=== PATIENT | male | born 1970 | race Caucasian/White ===

== ENCOUNTER 2017-02-10 10:19 | Emergency (ER) | payer BC ==
[2017-02-10] MEDS ORDERED: Aspirin Low Dose CHEW TAB* 81 MG PO ONE (10:29)
[2017-02-10] MEDS ORDERED: NS 0.9% 500 ML* 500 ML IV ONE (10:46)
[2017-02-10] MEDS ORDERED: Metoprolol Tartrate IV* 1 MG/ML 5 ML VIAL IV ONE (10:46)
--- NOTE | 2017-02-10 11:02 | RAD ---
Indication: Chest pressure. Single frontal view of the chest performed at 1036 hours was reviewed. Comparison is made with previous exam dated February 04, 2014. No mediastinal shift is noted. Pacemaker leads are in place. The visualized lung dutta are clear. IMPRESSION: NO ACTIVE CARDIOPULMONARY DISEASE IS NOTED. PACEMAKER LEADS IN PLACE. NO CHANGES NOTED SINCE PRIOR EXAM.
[2017-02-10 11:04] LABS: ABS Basophils 0.1 10^3/ul (0-0.2); ABS Eosinophils 0.2 10^3/ul (0-0.6); ABS Lymphocytes 1.1 10^3/ul (1.0-4.8); ABS Monocytes 0.5 10^3/ul (0-0.8); ABS Neutrophils 4.4 10^3/ul (1.5-7.7); ABS Nucleated RBC 0.03 10^3/ul; Eosinophil % 2.9 % (0-6); Hematocrit 46 % (42-52); Hemoglobin 15.8 g/dl (14.0-18.0); Lymphocyte % 18.1 % (25-47); Mean Corpuscular HGB Conc 35 g/dl (31-36); Mean Corpuscular Hemoglobin 30 pg (27-31); Mean Corpuscular Volume 88 fL (80-94); Mean Platelet Volume 9 um3 (7.4-10.4); Nucleated Red Blood Cells % 0.5; Platelet Count 228 10^3/ul (150-450); Red Blood Count 5.23 10^6/ul (4.0-5.4); Red Cell Distribution Width 13 % (10.5-15); White Blood Count 6.3 10^3/ul (3.5-10.8)
[2017-02-10 11:16] LABS: INR 0.91 (0.77-1.02)
[2017-02-10 11:26] LABS: EGFR Non-African American 80.7 (>60)
[2017-02-10 12:35] VITALS: BP 117/80
--- NOTE | 2017-02-10 13:03 | ED ---
Lu Loo Gabriel, scribed for Gerhard Navarro MD on 02/10/17 at 1041 . HPI Chest Pain - HPI Summary HPI Summary: This patient is a 46 year old M presenting to [facility] with a chief complaint of pressure in his chest since 0900 this morning. He also had a similar episode on 02/06/17. The patient rates the pain 8/10 in severity. Patient reports dizziness. Patient denies SOB. Patient has had a pacer for ten years due to cardiomyopathy and the battery is getting low and will be replaced soon. He reports that for the past three months when it is active he can feel it and it triggers and uncontrollable coughing fit. The low battery is making him anxious and he is worried that it is going to stop functioning. - History of Current Complaint Chief Complaint: EDChestPainROMI Time Seen by Provider: 02/10/17 10:29 Hx Obtained From: Patient Onset/Duration: Started Hours Ago - 0900, Started Days Ago - since 02/06, Still Present Time of Onset: 09:00 Timing: Constant Initial Severity: Moderate Current Severity: Mild Pain Intensity: 8 Pain Scale Used: 0-10 Numeric Chest Pain Radiates: No Character: Pressure/Squeezing Aggravating Factor(s): Nothing Alleviating Factor(s): Spontaneous Resolution Associated Signs and Symptoms: Positive: Negative - SOB, Other: - dizziness - Allergy/Home Medications Allergies/Adverse Reactions: Allergies Allergy/AdvReac Type Severity Reaction Status Date / Time Nitroglycerin AdvReac See Comment Verified 09/30/15 19:52 PMH/Surg Hx/FS Hx/Imm Hx Endocrine/Hematology History: Denies: Hx Diabetes Cardiovascular History: Reports: Hx Pacemaker/ICD Denies: Hx Hypercholesterolemia, Hx Hypertension Sensory History: Denies: Hx Legally Blind Opthamlomology History: Denies: Hx Cataracts EENT History: Denies: Hx Deafness - Surgical History Surgery Procedure, Year, and Place: PACEMAKER, IMPLANTED DEFIBRILLATOR Infectious Disease History: No Infectious Disease History: Denies: Traveled Outside the [place] in Last 30 Days - Family History Known Family History: Positive: Diabetes, Other - cancer - Social History Alcohol Use: Occasionally Substance Use Type: Reports: None Smoking Status (MU): Never Smoked Tobacco Review of Systems Positive: Chest Pain Positive: Cough. Negative: Shortness Of Breath Neurological: Other - dizziness All Other Systems Reviewed And Are Negative: Yes Physical Exam - Summary Physical Exam Summary: Appearance: Well appearing, no pain distress Skin: warm, dry, reflects adequate perfusion Head/face: normal Eyes: EOMI, MARY ENT: normal, mucus membranes are moist Neck: supple, non-tender Respiratory: CTA, breath sounds present Cardiovascular: RRR, pulses symmetrical. There is a pacer in the left chest with no tenderness Abdomen: non-tender, soft Bowel: present Musculoskeletal: normal, strength/ROM intact, no edema Neuro: normal, sensory motor intact, A&Ox3. Patient is anxious to the battery life of his device Triage Information Reviewed: Yes Vital Signs On Initial Exam: Initial Vitals Temp Pulse Resp BP Pulse Ox 97.0 F 103 18 136/93 99 02/10/17 10:20 02/10/17 10:20 02/10/17 10:20 02/10/17 10:20 02/10/17 10:20 Vital Signs Reviewed: Yes Diagnostics - Vital Signs Vital Signs Temp Pulse Resp BP Pulse Ox 02/10/17 10:20 97.0 F 103 18 136/93 99 - Laboratory Lab Results: Lab Results 02/10/17 02/10/17 02/10/17 Range/Units 10:50 10:50 10:50 WBC 6.3 (3.5-10.8) 10^3/ul RBC 5.23 (4.0-5.4) 10^6/ul Hgb 15.8 (14.0-18.0) g/dl Hct 46 (42-52) % MCV 88 (80-94) fL MCH 30 (27-31) pg MCHC 35 (31-36) g/dl RDW 13 (10.5-15) % Plt Count 228 (150-450) 10^3/ul MPV 9 (7.4-10.4) um3 Neut % (Auto) 69.7 (38-83) % Lymph % (Auto) 18.1 L (25-47) % Price % (Auto) 8.5 (1-9) % Eos % (Auto) 2.9 (0-6) % Baso % (Auto) 0.8 (0-2) % Absolute Neuts (auto) 4.4 (1.5-7.7) 10^3/ul Absolute Lymphs (auto) 1.1 (1.0-4.8) 10^3/ul Absolute Monos (auto) 0.5 (0-0.8) 10^3/ul Absolute Eos (auto) 0.2 (0-0.6) 10^3/ul Absolute Basos (auto) 0.1 (0-0.2) 10^3/ul Absolute Nucleated RBC 0.03 10^3/ul Nucleated RBC % 0.5 INR (Anticoag Therapy) 0.91 (0.77-1.02) APTT 28.9 (26.0-36.3) seconds Sodium 137 (133-145) mmol/L Potassium 4.4 (3.5-5.0) mmol/L Chloride 103 (101-111) mmol/L Carbon Dioxide 29 (22-32) mmol/L Anion Gap 5 (2-11) mmol/L BUN 14 (6-24) mg/dL Creatinine 0.99 (0.67-1.17) mg/dL Est GFR ( Amer) 103.8 (>60) Est GFR (Non-Af Amer) 80.7 (>60) BUN/Creatinine Ratio 14.1 (8-20) Glucose 109 H (70-100) mg/dL Lactic Acid (0.5-2.0) mmol/L Calcium 9.6 (8.6-10.3) mg/dL Total Bilirubin 1.20 H (0.2-1.0) mg/dL AST 21 (13-39) U/L ALT 16 (7-52) U/L Alkaline Phosphatase 57 (34-104) U/L CK-MB (CK-2) 4.0 (0.6-6.3) ng/mL Troponin I 0.00 (<0.04) ng/mL Total Protein 7.7 (6.4-8.9) g/dL Albumin 4.4 (3.2-5.2) g/dL Globulin 3.3 (2-4) g/dL Albumin/Globulin Ratio 1.3 (1-3) 02/10/ Range/Units 10:50 WBC (3.5-10.8) 10^3/ul RBC (4.0-5.4) 10^6/ul Hgb (14.0-18.0) g/dl Hct (42-52) % MCV (80-94) fL MCH (27-31) pg MCHC (31-36) g/dl RDW (10.5-15) % Plt Count (150-450) 10^3/ul MPV (7.4-10.4) um3 Neut % (Auto) (38-83) % Lymph % (Auto) (25-47) % Price % (Auto) (1-9) % Eos % (Auto) (0-6) % Baso % (Auto) (0-2) % Absolute Neuts (auto) (1.5-7.7) 10^3/ul Absolute Lymphs (auto) (1.0-4.8) 10^3/ul Absolute Monos (auto) (0-0.8) 10^3/ul Absolute Eos (auto) (0-0.6) 10^3/ul Absolute Basos (auto) (0-0.2) 10^3/ul Absolute Nucleated RBC 10^3/ul Nucleated RBC % INR (Anticoag Therapy) (0.77-1.02) APTT (26.0-36.3) seconds Sodium (133-145) mmol/L Potassium (3.5-5.0) mmol/L Chloride (101-111) mmol/L Carbon Dioxide (22-32) mmol/L Anion Gap (2-11) mmol/L BUN (6-24) mg/dL Creatinine (0.67-1.17) mg/dL Est GFR ( Amer) (>60) Est GFR (Non-Af Amer) (>60) BUN/Creatinine Ratio (8-20) Glucose (70-100) mg/dL Lactic Acid 1.1 (0.5-2.0) mmol/L Calcium (8.6-10.3) mg/dL Total Bilirubin (0.2-1.0) mg/dL AST (13-39) U/L ALT (7-52) U/L Alkaline Phosphatase (34-104) U/L CK-MB (CK-2) (0.6-6.3) ng/mL Troponin I (<0.04) ng/mL Total Protein (6.4-8.9) g/dL Albumin (3.2-5.2) g/dL Globulin (2-4) g/dL Albumin/Globulin Ratio (1-3) Result Diagrams: 02/10/17 10:50 02/10/17 10:50 Lab Statement: Any lab studies that have been ordered have been reviewed, and results considered in the medical decision making process. - Radiology CXR Radiology Interpretation Completed By: Radiologist - NO ACTIVE CARDIOPULMONARY DISEASE IS NOTED. PACEMAKER LEADS IN PLACE. NO CHANGES NOTED SINCE PRIOR EXAM. ED physician has reviewed this radiology report. - EKG 1025 Cardiac Rate: NL EKG Rhythm: Sinus Rhythm - at [address] Segment: Normal EKG Interpretation: LAD Re-Evaluation - Re-Evaluation First Eval Re-Evaluation Time: 11:47 Change: Improved - Patient is feeling better and would like to be discharged. Chest Pain Course/Dx - Course Course Of Treatment: pt is quite anxious about nearing the end of battery life of his AICD/pacer. He feels that it makes him cough when it activates. No coughing here. Trop, ECG wnl. Trop not detected. Pt calmed here. D/C to f/u closely with [facility] in [place]. - Diagnoses Provider Diagnoses: Atypical chest pain, History of cardiomyopathy, Adjustment disorder Discharge - Discharge Plan Condition: Good Disposition: HOME Prescriptions: Famotidine TAB* [Pepcid 20 MG TAB*] 20 mg PO BID #20 tab Patient Education Materials: Chest Pain (ED) Forms: *Work Release Referrals: [facility] [Outside] Additional Instructions: Call Dr Crow in [place] regarding replacement of your device. If they cannot do it on your schedule call Shreyas Saleem or Anita. Return with continued symptoms, palpitations, worse or other concerns. The documentation as recorded by the Lu clark Gabriel accurately reflects the service I personally performed and the decisions made by me, Gerhard Navarro MD.
== END 2017-02-10 12:33 | disposition home or self-care (01) ==
LOC: ED 10:19
DX: R07.9 Chest pain, unspecified (principal); F43.20 Adjustment disorder, unspecified; R05 Cough; R42 Dizziness and giddiness; R07.89 Other chest pain; Z86.79 Personal history of other diseases of the circulatory system
CPT/HCPCS: 36415; 71010; 80053; 82553; 83605; 84484; 85025; 85610; 85730; 93005; 99283; A9270-GY; J3490

== ENCOUNTER → 2017-03-29 11:44 | Day surgery (SDC) | payer BC ==
[~2017-03-29 11:44] MED LIST: Diazepam TAB(*) 5 MG ONE; Diazepam TAB(*) 5 MG PO ONE; Lidocaine 1% INJ* 10 MG/ML 30 ML SDV ONE; Midazolam* 1 MG/ML 10 ML VIAL (10 MG) ONE; NS 0.9% 1000 ML* 1,000 ML IV SCH; ceFAZolin 2 GM PREMIX (*) 2 GM/50 ML BAG IVPB ONE; ceFAZolin VIAL 1 GM in NS *SYRINGE * * 10 ML ONE; fentaNYL* 50 MCG/ML 2 ML VIAL (100 MCG VIAL) ONE
[2017-03-29 16:04] VITALS: BP 130/91
--- NOTE | 2017-03-30 14:16 | OP ---
CC: Dr. Santiago OPERATIVE REPORT: DATE OF OPERATION: 03/29/17 DATE OF : 66 SURGEON: Jose Stroud MD ANESTHESIA: Local anesthesia with conscious sedation. PRE-OP DIAGNOSES: ICD at elective replacement indicator and cardiomyopathy. POST-OP DIAGNOSES: ICD at elective replacement indicator and cardiomyopathy. OPERATIVE PROCEDURE: Single-chamber ICD generator change. ESTIMATED BLOOD LOSS: Nil. COMPLICATIONS: None. INDICATIONS: The patient is a 46-year-old gentleman with a history of ischemic cardiomyopathy, histo ry of ICD implantation in 2006. He has been followed closely by Dr. Santiago. The patient's ICD re ached elective replacement indicator and generator change was recommended. DESCRIPTION OF PROCEDURE: The patient was brought to the procedure room in a fasting state. Informe d consent had been obtained prior to the procedure. All labs had been reviewed. The patient has a [employer] ICD generator and ICD lead. His ICD lead is not MRI compatible. The decision was m eileen to switch to a Med[employer] generator. The patient was placed supine on the procedure table. His l eft deltopectoral area was cleaned and draped in usual fashion. 1% lidocaine was used for local anes thesia. A 4.5-cm incision was made in the previous incision line and blunt dissection was carried do wn to the fiber sheath. The fiber sheath was opened and the ICD generator was removed from the pocke t. It was detached from the ventricular lead. The explanted device is a [employer], model T1 77, implant date 08/11/06, serial number [id number]. The pocket was flushed with an antibiotic infused n ormal saline. A new generator was attached to the ventricular lead. The generator is a Medtronic mo del [id number], serial number [id number]. The device was placed into the pocket. The surgical incision was closed in 3 layers. The patient was returned to the holding area in stable condition. [id number]/[facility] #: [id number]
== END | disposition home or self-care (01) ==
LOC: CHICATH 11:44
PROVIDERS: ATTEND Specialist
DX: Z45.02 Encounter for adjustment and management of automatic implantable cardiac defibrillator (principal); Z95.810 Presence of automatic (implantable) cardiac defibrillator; I42.8 Other cardiomyopathies; I10 Essential (primary) hypertension; R42 Dizziness and giddiness; R00.0 Tachycardia, unspecified; R07.9 Chest pain, unspecified; R00.2 Palpitations; R06.00 Dyspnea, unspecified
CPT/HCPCS: 33262; 88300; 99156; 99157; A9270-GY; C1722; J0690; J2250; J3010

== ENCOUNTER 2017-04-08 09:33 | Emergency (ER) | payer BC ==
--- NOTE | 2017-04-08 10:59 | RAD ---
INDICATION: Chest pain. COMPARISON: Comparison is made with a prior study from February 10, 2017. TECHNIQUE: Dual-energy PA and lateral views of the chest were obtained. FINDINGS: The heart is within normal limits in size. There is a transvenous pacemaker present. The lungs are clear. No pleural effusion is present. IMPRESSION: NO EVIDENCE FOR ACTIVE CARDIOPULMONARY DISEASE.
--- NOTE | 2017-04-08 11:44 | ED ---
Anju Loo Julia, scribed for Abran Li MD on 04/08/17 at 1022 . Complex/Multi-Sys Presentation - HPI Summary HPI Summary: This patient is a 46 year old M presenting to [facility] with a chief complaint of pain over recent pacemaker replacement over the right anterior chest. Patient reports he moved the wrong way while working , by swinging sledge hammer this morning. Patient denies edema. The patient rates the pain 9/10 in severity. Patient has history of cardiomyopathy for the past fifteen years and is a longstanding pacemaker patient. He states these symptoms are similar to post procedural pain. - History Of Current Complaint Chief Complaint: EDGeneral Time Seen by Provider: 04/08/17 10:16 Hx Obtained From: Patient Onset/Duration: Lasting Hours Timing: Constant Location: Pain At: - R anterior chest Aggravating Factor(s): recent movement Related History: Other - long standing pacemaker patient - Allergies/Home Medications Allergies/Adverse Reactions: Allergies Allergy/AdvReac Type Severity Reaction Status Date / Time nitroglycerin Allergy Mild See Comment Verified 04/08/17 11:19 enalaprilat [From Vasotec] Allergy Coughing Verified 03/29/17 12:47 PMH/Surg Hx/FS Hx/Imm Hx Endocrine/Hematology History: Denies: Hx Diabetes Cardiovascular History: Reports: Hx Pacemaker/ICD Denies: Hx Hypercholesterolemia, Hx Hypertension Sensory History: Denies: Hx Cataracts, Hx Legally Blind, Hx Deafness Opthamlomology History: Denies: Hx Cataracts, Hx Legally Blind - Surgical History Surgery Procedure, Year, and Place: PACEMAKER, IMPLANTED DEFIBRILLATOR Infectious Disease History: No Infectious Disease History: Denies: Traveled Outside the [place] in Last 30 Days - Family History Known Family History: Positive: Diabetes, Other - cancer - Social History Alcohol Use: Daily Alcohol Amount: 1 beer a day Substance Use Type: Reports: None Smoking Status (MU): Never Smoked Tobacco Review of Systems Positive: Other - r anterior cp at pacemaker placement Negative: Edema All Other Systems Reviewed And Are Negative: Yes Physical Exam Triage Information Reviewed: Yes Vital Signs On Initial Exam: Initial Vitals Temp Pulse Resp BP Pulse Ox 99 F 95 17 141/90 95 04/08/17 09:37 04/08/17 09:37 04/08/17 09:37 04/08/17 09:37 04/08/17 09:37 Vital Signs Reviewed: Yes Appearance: Positive: Well-Appearing, No Pain Distress Skin: Positive: Warm, Skin Color Reflects Adequate Perfusion Head/Face: Positive: Normal Head/Face Inspection Eyes: Positive: EOMI ENT: Positive: Normal ENT inspection Neck: Positive: Nontender Respiratory/Lung Sounds: Positive: Clear to Auscultation, Breath Sounds Present , Other - LEFT UPPER CHEST WALL WITH SCAR PRESENT AND HEALING WELL. NO DEHISCENCE, AND HEMATOMA, NO REDNESS, NO FLUCTUANCE. PACEMAKER PALPATED AND NON TENDER. Cardiovascular: Positive: RRR. Negative: Murmur Abdomen Description: Positive: Nontender Musculoskeletal: Positive: Strength/ROM Intact Neurological: Positive: Sensory/Motor Intact, Alert, Oriented to Person Place, Time, CN Intact II-III Psychiatric: Positive: Normal - Arthur Coma Scale Best Eye Response: 4 - Spontaneous Best Motor Response: 6 - Obeys Commands Best Verbal Response: 5 - Oriented Coma Scale Total: 15 Diagnostics - Vital Signs Vital Signs Temp Pulse Resp BP Pulse Ox 04/08/17 09:52 96 21 95 04/08/17 09:51 126/91 04/08/17 09:37 99 F 95 17 141/90 95 - Laboratory Lab Statement: Any lab studies that have been ordered have been reviewed, and results considered in the medical decision making process. - Radiology CXR Radiology Interpretation Completed By: Radiologist - NO EVIDENCE FOR ACTIVE CARDIOPULMONARY DISEASE. ED Physician has reviewed this report. Complex Multi-Symp Course/Dx Course Of Treatment: Patient presents with pain over recent pacemaker insertion , after swinging a sledge hammer. There is no edema or oozing. A CXR reveals no acute concern. Dr. Spann saw this patient in the ED. Dr Spann wrote note for patient to be out of work until Wednesday, and Cardiology to direct further work related instructions. - Diagnoses Provider Diagnoses: Soft tissue injury of chest wall - Physician Notifications Discussed Care Of Patient With: Meryl Spann - cardiology Time Discussed With Above Provider: 11:13 Instructed by Provider To: MD Will See In ED Discharge - Discharge Plan Condition: Good Disposition: HOME Patient Education Materials: Chest Wall Pain (ED) Referrals: Shelbie Santiago MD [Primary Care Provider] - Additional Instructions: Dr Spann has taken you out of work until WednesdayApr 13. Contact there office for any further concerns. The documentation as recorded by the Ajnu clark Julia accurately reflects the service I personally performed and the decisions made by me, Abran Li MD.
[2017-04-08 11:49] VITALS: BP 122/86
== END 2017-04-08 11:56 | disposition home or self-care (01) ==
LOC: ED 09:33
DX: S29.8XXA Other specified injuries of thorax, initial encounter (principal); X50.0XXA Overexertion from strenuous movement or load, initial encounter; Y93.89 Activity, other specified; Y92.9 Unspecified place or not applicable; I42.9 Cardiomyopathy, unspecified; Z95.0 Presence of cardiac pacemaker; Z88.8 Allergy status to other drugs, medicaments and biological substances
CPT/HCPCS: 71046; 99282

== ENCOUNTER 2017-04-30 13:30 | Emergency (ER) | payer BC ==
[2017-04-30] MEDS ORDERED: NS 0.9% 1000 ML* 1,000 ML IV ONE (16:39)
--- NOTE | 2017-04-30 17:03 | RAD ---
Indication: Chest congestion, cough. Symptoms for 4 days. Cardiac disease. Comparison: April 08, 2017 TECHNIQUE: Dual energy PA and routine lateral views of the chest were obtained. REPORT: No focal pulmonary lesion, compelling alveolar consolidation, pleural effusion, pneumothorax. Lead of LEFT chest wall pacemaker device extends to the RIGHT ventricle. Negative for cardiomegaly. Unremarkable central pulmonary vasculature and mediastinal contours. Unremarkable soft tissue contours and osseous structures for age. IMPRESSION: No evidence for acute intrathoracic disease.
[2017-04-30 17:17] LABS: ABS Basophils 0.1 10^3/ul (0-0.2); ABS Eosinophils 0.2 10^3/ul (0-0.6); ABS Lymphocytes 1.5 10^3/ul (1.0-4.8); ABS Monocytes 0.6 10^3/ul (0-0.8); ABS Neutrophils 4.1 10^3/ul (1.5-7.7); ABS Nucleated RBC 0 10^3/ul; Eosinophil % 2.4 % (0-6); Hematocrit 46 % (42-52); Hemoglobin 15.9 g/dl (14.0-18.0); Lymphocyte % 23.7 % (25-47); Mean Corpuscular HGB Conc 35 g/dl (31-36); Mean Corpuscular Hemoglobin 30 pg (27-31); Mean Corpuscular Volume 87 fL (80-94); Mean Platelet Volume 9 um3 (7.4-10.4); Nucleated Red Blood Cells % 0.1; Platelet Count 227 10^3/ul (150-450); Red Blood Count 5.27 10^6/ul (4.0-5.4); Red Cell Distribution Width 13 % (10.5-15); White Blood Count 6.4 10^3/ul (3.5-10.8)
[2017-04-30 17:41] LABS: EGFR Non-African American 96.2 (>60)
--- NOTE | 2017-04-30 18:54 | ED ---
Saeed Loo Nilda, scribed for Abran Winkler MD on 04/30/17 at 1643 . Respiratory - HPI Summary HPI Summary: This patient is a 46 year old M presenting to [facility] with a chief complaint of constant URI-like symptoms for the past few days. The patient rates the pain 0/ 10 in severity. Symptoms aggravated and alleviated by nothing. Patient reports chest congestion, rhinorrhea, productive cough (though unable to produce sputum) , and abd pain secondary to coughing. Patient denies sore throat, body aches, and CP. Patient states he had recent defibrillator replacement surgery for cardiomyopathy. Patient contacted PCP who recommended patient get evaluated at ED for possible pneumonia. - History of Current Complaint Chief Complaint: EDShortnessOfBreath Stated Complaint: CHEST CONGESTION,COUGH Time Seen by Provider: 04/30/17 16:24 Hx Obtained From: Patient Onset/Duration: Sudden Onset, Still Present Timing: Constant Pain Intensity: 0 Character: Cough (Productive) Sputum Amount: None Aggravating Factor(s): Nothing Alleviating Factor(s): Nothing Associated Signs and Symptoms: Nasal Congestion - Allergy/Home Medications Allergies/Adverse Reactions: Allergies Allergy/AdvReac Type Severity Reaction Status Date / Time nitroglycerin Allergy Mild See Comment Verified 04/30/17 13:45 enalaprilat [From Vasotec] Allergy Coughing Verified 04/30/17 13:45 Home Medications: Home Medications Losartan TAB* [Cozaar TAB*] 25 mg PO DAILY 04/30/17 [History Confirmed 04/30/17] PMH/Surg Hx/FS Hx/Imm Hx Endocrine/Hematology History: Denies: Hx Diabetes Cardiovascular History: Reports: Hx Pacemaker/ICD Denies: Hx Hypercholesterolemia, Hx Hypertension Sensory History: Denies: Hx Cataracts, Hx Legally Blind, Hx Deafness Opthamlomology History: Denies: Hx Cataracts, Hx Legally Blind - Surgical History Surgery Procedure, Year, and Place: PACEMAKER, IMPLANTED DEFIBRILLATOR Infectious Disease History: No Infectious Disease History: Denies: Traveled Outside the [place] in Last 30 Days - Family History Known Family History: Positive: Diabetes, Other - cancer - Social History Alcohol Use: Daily Alcohol Amount: 1 beer a day Substance Use Type: Reports: None Smoking Status (MU): Never Smoked Tobacco Review of Systems Positive: Nasal Discharge. Negative: Sore Throat Negative: Chest Pain Positive: Cough Positive: Abdominal Pain - secondary to coughing Negative: Myalgia All Other Systems Reviewed And Are Negative: Yes Physical Exam - Summary Physical Exam Summary: VITAL SIGNS: Reviewed. GENERAL: Patient is a well-developed and nourished male who is lying comfortable in the stretcher. Patient is not in any acute respiratory distress. HEAD AND FACE: No signs of trauma. No ecchymosis, hematomas or skull depressions. No sinus tenderness. EYES: PERRLA, EOMI x 2, No injected conjunctiva, no nystagmus. EARS: Hearing grossly intact. Ear canals and tympanic membranes are within normal limits. MOUTH: Oropharynx within normal limits. NECK: Supple, trachea is midline, no adenopathy, no JVD, no carotid bruit, no c- spine tenderness, neck with full ROM. CHEST: Symmetric, no tenderness at palpation. Incision on left side of chest, dry w/o signs of infection. LUNGS: Course breath sounds bilat. No wheezing or crackles. CVS: Regular rate and rhythm, S1 and S2 present, no murmurs or gallops appreciated. ABDOMEN: Soft, non-tender. No signs of distention. No rebound no guarding, and no masses palpated. Bowel sounds are normal. EXTREMITIES: FROM in all major joints, no edema, no cyanosis or clubbing. NEURO: Alert and oriented x 3. No acute neurological deficits. Speech is normal and follows commands. SKIN: Dry and warm Triage Information Reviewed: Yes Vital Signs On Initial Exam: Initial Vitals Temp Pulse Resp BP Pulse Ox 97.9 F 81 18 110/93 96 04/30/17 13:45 04/30/17 13:45 04/30/17 13:45 04/30/17 13:45 04/30/17 13:45 Vital Signs Reviewed: Yes Diagnostics - Vital Signs Vital Signs Temp Pulse Resp BP Pulse Ox 04/30/17 13:45 97.9 F 81 18 110/93 96 - Laboratory Lab Results: Lab Results 04/30/17 04/30/17 04/30/17 Range/Units 17:01 17:01 17:01 WBC 6.4 (3.5-10.8) 10^3/ul RBC 5.27 (4.0-5.4) 10^6/ul Hgb 15.9 (14.0-18.0) g/dl Hct 46 (42-52) % MCV 87 (80-94) fL MCH 30 (27-31) pg MCHC 35 (31-36) g/dl RDW 13 (10.5-15) % Plt Count 227 (150-450) 10^3/ul MPV 9 (7.4-10.4) um3 Neut % (Auto) 63.1 (38-83) % Lymph % (Auto) 23.7 L (25-47) % [place] % (Auto) 10.0 H (0-7) % Eos % (Auto) 2.4 (0-6) % Baso % (Auto) 0.8 (0-2) % Absolute Neuts (auto) 4.1 (1.5-7.7) 10^3/ul Absolute Lymphs (auto) 1.5 (1.0-4.8) 10^3/ul Absolute Monos (auto) 0.6 (0-0.8) 10^3/ul Absolute Eos (auto) 0.2 (0-0.6) 10^3/ul Absolute Basos (auto) 0.1 (0-0.2) 10^3/ul Absolute Nucleated RBC 0 10^3/ul Nucleated RBC % 0.1 D-Dimer, Quantitative (Less Than 230) ng/mL Sodium 136 (133-145) mmol/L Potassium 3.7 (3.5-5.0) mmol/L Chloride 101 (101-111) mmol/L Carbon Dioxide 25 (22-32) mmol/L Anion Gap 10 (2-11) mmol/L BUN 15 (6-24) mg/dL Creatinine 0.85 (0.67-1.17) mg/dL Est GFR ( Amer) 123.7 (>60) Est GFR (Non-Af Amer) 96.2 (>60) BUN/Creatinine Ratio 17.6 (8-20) Glucose 89 (70-100) mg/dL Lactic Acid 0.8 (0.5-2.0) mmol/L Calcium 9.6 (8.6-10.3) mg/dL Total Bilirubin 2.20 H (0.2-1.0) mg/dL AST 29 (13-39) U/L ALT 24 (7-52) U/L Alkaline Phosphatase 58 (34-104) U/L Total Creatine Kinase 185 (10-223) U/L Troponin I 0.00 (<0.04) ng/mL C-Reactive Protein 3.88 (< 5.00) mg/L B-Natriuretic Peptide ( - 100) pg/mL Total Protein 7.9 (6.4-8.9) g/dL Albumin 4.5 (3.2-5.2) g/dL Globulin 3.4 (2-4) g/dL Albumin/Globulin Ratio 1.3 (1-3) Influenza A (Rapid) (Negative) Influenza B (Rapid) (Negative) 04/30/17 04/30/17 04/30/17 Range/Units 17:01 17:01 17:12 WBC (3.5-10.8) 10^3/ul RBC (4.0-5.4) 10^6/ul Hgb (14.0-18.0) g/dl Hct (42-52) % MCV (80-94) fL MCH (27-31) pg MCHC (31-36) g/dl RDW (10.5-15) % Plt Count (150-450) 10^3/ul MPV (7.4-10.4) um3 Neut % (Auto) (38-83) % Lymph % (Auto) (25-47) % [place] % (Auto) (0-7) % Eos % (Auto) (0-6) % Baso % (Auto) (0-2) % Absolute Neuts (auto) (1.5-7.7) 10^3/ul Absolute Lymphs (auto) (1.0-4.8) 10^3/ul Absolute Monos (auto) (0-0.8) 10^3/ul Absolute Eos (auto) (0-0.6) 10^3/ul Absolute Basos (auto) (0-0.2) 10^3/ul Absolute Nucleated RBC 10^3/ul Nucleated RBC % D-Dimer, Quantitative < 200 (Less Than 230) ng/mL Sodium (133-145) mmol/L Potassium (3.5-5.0) mmol/L Chloride (101-111) mmol/L Carbon Dioxide (22-32) mmol/L Anion Gap (2-11) mmol/L BUN (6-24) mg/dL Creatinine (0.67-1.17) mg/dL Est GFR ( Amer) (>60) Est GFR (Non-Af Amer) (>60) BUN/Creatinine Ratio (8-20) Glucose (70-100) mg/dL Lactic Acid (0.5-2.0) mmol/L Calcium (8.6-10.3) mg/dL Total Bilirubin (0.2-1.0) mg/dL AST (13-39) U/L ALT (7-52) U/L Alkaline Phosphatase (34-104) U/L Total Creatine Kinase (10-223) U/L Troponin I (<0.04) ng/mL C-Reactive Protein (< 5.00) mg/L B-Natriuretic Peptide 31 ( - 100) pg/mL Total Protein (6.4-8.9) g/dL Albumin (3.2-5.2) g/dL Globulin (2-4) g/dL Albumin/Globulin Ratio (1-3) Influenza A (Rapid) Negative (Negative) Influenza B (Rapid) Negative (Negative) Result Diagrams: 04/30/17 17:01 04/30/17 17:01 Lab Statement: Any lab studies that have been ordered have been reviewed, and results considered in the medical decision making process. - Radiology CXR Radiology Interpretation Completed By: Radiologist - CXR reveals no evidence for acute active intrathoracic disease. Dr. Winkler has reviewed this radiology report. - EKG 1653 Cardiac Rate: NL EKG Rhythm: Sinus Rhythm - 78 bpm EKG Interpretation: no ST elevation or depression Re-Evaluation - Re-Evaluation First Eval Re-Evaluation Time: 17:08 Comment: Reviewed labs and EKG with patient. Second Eval Re-Evaluation Time: 18:22 Comment: Reviewed labs with patient as well as D/C and treatment plan. Patient is agreeable to D/C. Disposition - Course Assessment/Plan: This patient is a 46 year old M presenting to [facility] with a chief complaint of constant URI-like symptoms for the past few days. The patient rates the pain 0/10 in severity. Symptoms aggravated and alleviated by nothing. Patient reports chest congestion, rhinorrhea, productive cough (though unable to produce sputum), and abd pain secondary to coughing. Patient denies sore throat, body aches, and CP. Patient states he had recent defibrillator replacement surgery for cardiomyopathy. Patient contacted PCP who recommended patient get evaluated at ED for possible pneumonia. In the ED course an IV access was obtained. Patient was placed in a cardiac tech. Patient was started with IV fluids. Labs without any significant abnormality. D Dimer is < 200, no hypoxia and no tachycardia thus no suspicion for PE. Troponin #1: 0.00. EKG shows a NSR at 78 w/o ST elevations. CXR impression: No acute pathology. Influenza A and B negative. I believe he has a viral infection. I discussed all the findings and test results with the patient. Patient was instructed to return to the emergency room immediately if any of the symptoms return or worsens. Plan of care was discussed with the patient and understands and agrees. All questions were answered at patient satisfaction. There were no further complaints or concerns. Lung exam before discharge: CTA B/L. Good air exchange. No wheezing or crackles heard. CVS: S1 and S2 present. No murmurs appreciated. Patient is alert and oriented x 3. Patient is hemodynamically stable. Patient will be discharged home with follow up PCP in the next 2-3 days - Diagnoses Provider Diagnoses: URI (upper respiratory infection) Discharge - Discharge Plan Condition: Stable Disposition: HOME Prescriptions: Azithromycin TAB* [Zithromax TAB (Z-FER) 250 mg #6 tabs] 2 tab PO .TODAY, THEN 1 DAILY #1 fer Patient Education Materials: Upper Respiratory Infection (ED) Forms: *Work Release Referrals: Shelbie Santiago MD [Primary Care Provider] - 3 Days Additional Instructions: RETURN TO THE EMERGENCY DEPARTMENT FOR CHANGING OR WORSENING SYMPTOMS. The documentation as recorded by the Saeed clark Nilda accurately reflects the service I personally performed and the decisions made by , Abran Winkler MD.
[2017-04-30 19:12] VITALS: BP 131/92
== END 2017-04-30 19:12 | disposition home or self-care (01) ==
LOC: ED 13:30
DX: J06.9 Acute upper respiratory infection, unspecified (principal); R05 Cough
CPT/HCPCS: 36415; 71046; 80053; 82550; 83605; 83880; 84484; 85025; 85379; 86140; 87502; 93005; 99283

== ENCOUNTER 2017-06-14 20:05 | Emergency (ER) | payer BC, OTHER ==
[2017-06-14] MEDS ORDERED: oxyCODONE/Acetamin 5/325 MG* TAB PO ONE (21:06)
--- NOTE | 2017-06-14 21:43 | RAD ---
HISTORY: Right posterior pain, hip pain, fall COMPARISONS: None TECHNIQUE: Multiple contiguous axial CT scans were obtained of the chest, abdomen, and pelvis, without intravenous contrast enhancement. Coronal and sagittal multiplanar reformations are submitted for review.. Oral contrast was not administered. FINDINGS: The study is limited by the lack of intravenous contrast. This limits evaluation of the solid organs and vasculature. CHEST NECK AND THYROID: The lower neck and thyroid are unremarkable. CHEST WALL: There is no lower cervical, axillary, or supraclavicular lymphadenopathy by size criteria. A left-sided pacemaker is noted. HEART AND PERICARDIUM: The heart is unremarkable. AORTA AND PULMONARY VASCULATURE: The aorta and pulmonary vasculature are normal. MEDIASTINUM: There is no mediastinal lymphadenopathy by size criteria. ZHEN: There is no hilar lymphadenopathy by size criteria. AIRWAY AND ESOPHAGUS: The airway is unremarkable, without endobronchial filling defect. The esophagus is grossly normal. LUNG PARENCHYMA: The lungs are clear. PLEURA: No pleural abnormalities are noted. BONES AND SOFT TISSUES: No bone or soft tissue abnormalities are noted. ABDOMEN/PELVIS: LIVER: The liver is normal in shape, size, contour, and attenuation. BILE DUCTS: There is no intrahepatic or extrahepatic biliary dilatation. GALLBLADDER: The gallbladder is normal, without pericholecystic inflammatory change. PANCREAS: The pancreas is normal, without mass or ductal dilatation. SPLEEN: Normal in size and appearance. UPPER GI TRACT: Evaluation of the gastrointestinal tract is limited by incomplete gastric distention. There is a small sliding hiatal hernia. SMALL BOWEL & MESENTERY: The small bowel is normal in contour, course, and caliber. There is no obstruction or dilatation. COLON: The colon is normal in contour, course, caliber. There is no pericolonic inflammatory change. ADRENALS: Normal bilaterally. KIDNEYS: The kidneys are normal in shape, size, contour, and axis. There is no hydronephrosis or nephrolithiasis. BLADDER: The bladder is smooth in contour. PELVIC ORGANS: The prostate gland is normal. The seminal vesicles are symmetric. AORTA: The aorta is normal. IVC: Unremarkable LYMPH NODES: There is no lymphadenopathy by size criteria. ABDOMINAL WALL: There is no evidence for abdominal wall hernia. BONES AND SOFT TISSUES: Unremarkable OTHER: None IMPRESSION: UNREMARKABLE NONCONTRAST CT OF THE CHEST, ABDOMEN, AND PELVIS. NO ACUTE CT PATHOLOGY
--- NOTE | 2017-06-14 21:55 | ED ---
Adult Trauma - HPI Summary HPI Summary: 38-year-old male presents with right sided flank rib and right hip pain after fall today. He states he slipped off a couple feet landing landed on the concrete. Denies any head injury. denies any LOC. Denies any neck pain. He denies any shortness breath. He denies any bowel pain. He is able to ambulate. He denies any numbness or tingling. States pain 10 out of 10. States pain is worse when he takes a deep breath. He states his pain is on the right side of his posterior ribs. He also admits to right hip pain. He denies previously injuring these areas. He denies any other injury. - History of Current Complaint Chief Complaint: EDHipPelvisInjury Stated Complaint: FALL/RT SIDE PAIN Time Seen by Provider: 06/14/17 20:59 Pain Intensity: 9 - Allergy/Home Medications Allergies/Adverse Reactions: Allergies Allergy/AdvReac Type Severity Reaction Status Date / Time nitroglycerin Allergy Mild See Comment Verified 04/30/17 13:45 enalaprilat [From Vasotec] Allergy Coughing Verified 04/30/17 13:45 PMH/Surg Hx/FS Hx/Imm Hx Endocrine/Hematology History: Denies: Hx Diabetes Cardiovascular History: Reports: Hx Pacemaker/ICD Denies: Hx Hypercholesterolemia, Hx Hypertension Sensory History: Denies: Hx Cataracts, Hx Legally Blind, Hx Deafness Opthamlomology History: Denies: Hx Cataracts, Hx Legally Blind - Surgical History Surgery Procedure, Year, and Place: PACEMAKER, IMPLANTED DEFIBRILLATOR Infectious Disease History: No Infectious Disease History: Denies: Traveled Outside the [place] in Last 30 Days - Family History Known Family History: Positive: Diabetes, Other - cancer - Social History Alcohol Use: Daily Alcohol Amount: 1 beer a day Substance Use Type: Reports: None Smoking Status (MU): Never Smoked Tobacco Review of Systems Negative: Fever Positive: Other - right rib pain Negative: Shortness Of Breath Negative: Abdominal Pain Positive: Myalgia - right hip pain All Other Systems Reviewed And Are Negative: Yes Physical Exam Triage Information Reviewed: Yes Vital Signs On Initial Exam: Initial Vitals Temp Pulse Resp BP Pulse Ox 99.7 F 94 20 133/96 99 06/14/17 20:08 06/14/17 20:08 06/14/17 20:08 06/14/17 20:08 06/14/17 20:08 Vital Signs Reviewed: Yes Appearance: Positive: Well-Appearing Skin: Positive: Warm, Dry Head/Face: Positive: Normal Head/Face Inspection, Other - No step off, raccoon eyes, taylor sign Eyes: Positive: Normal, EOMI, MARY, Conjunctiva Clear ENT: Positive: Normal ENT inspection, Pharynx normal, TMs normal Neck: Positive: Other: - Nontender neck Respiratory/Lung Sounds: Positive: Clear to Auscultation, Breath Sounds Present , Other - Tenderness posterior right ribs 8 through 12 Cardiovascular: Positive: Normal, RRR Abdomen Description: Positive: Nontender, Soft, CVA Tenderness (R) Bowel Sounds: Positive: Present Musculoskeletal: Positive: Strength/ROM Intact - Right hip, Other - Tenderness right hip, good pulses, capillary refill less than 2 seconds Neurological: Positive: Normal Psychiatric: Positive: Normal Diagnostics - Vital Signs Vital Signs Temp Pulse Resp BP Pulse Ox 06/14/17 20:08 99.7 F 94 20 133/96 99 - Laboratory Lab Statement: Any lab studies that have been ordered have been reviewed, and results considered in the medical decision making process. - CT chest, abd CT Interpretation: No Acute Changes CT Interpretation Completed By: Radiologist Adult Trauma Course/Dx - Course Course Of Treatment: 38-year-old male presents with right sided flank rib and right hip pain after fall today. He states he slipped off a couple feet landing landed on the concrete. Denies any head injury. denies any LOC. Denies any neck pain. He denies any shortness breath. He denies any bowel pain. He is able to ambulate. He denies any numbness or tingling. States pain 10 out of 10. States pain is worse when he takes a deep breath. He states his pain is on the right side of his posterior ribs. He also admits to right hip pain. He denies previously injuring these areas. He denies any other injury. On exam his states that 12 posterior right. Also has pain in her right hip. Full range of motion hip. CT chest and the pelvis normal. We'll treat as contusion with ice and ibuprofen. Patient requesting stronger pain medication at night. We'll use tramadol. Patient understands agrees with plan. - Diagnoses Differential Diagnosis/HQI/PQRI: Positive: Contusion(s), Fracture, Strain Provider Diagnoses: Fall, Right hip pain, Contusion of rib on right side Discharge - Sign-Out/Discharge Documenting (check all that apply): Discharge/Admit/Transfer - Discharge Plan Condition: Good Disposition: HOME Prescriptions: traMADol TAB* [Ultram*] 50 mg PO Q8HR PRN #6 tab MDD 3 PRN Reason: Pain Patient Education Materials: Rib Contusion (ED) Forms: *Work Release Referrals: Shelbie Santiago MD [Primary Care Provider] - Additional Instructions: Take Tylenol or ibuprofen every 6 hours as needed for pain, use narcotic for break through pain every 8 hours as need Apply ice, rest, elevate Take deep breaths throughout the day Follow up with primary care physician within 5 days Return to ED if develop any new or worsening symptoms - Billing Disposition and Condition Condition: GOOD Disposition: HOME
[2017-06-14 22:56] VITALS: BP 136/87
== END 2017-06-14 22:54 | disposition home or self-care (01) ==
LOC: ED 20:05
DX: S20.211A Contusion of right front wall of thorax, initial encounter (principal); M25.551 Pain in right hip; R07.81 Pleurodynia; W19.XXXA Unspecified fall, initial encounter; Y92.9 Unspecified place or not applicable
CPT/HCPCS: 71250; 74176; 99282; A9270-GY